=== PATIENT | female | born 1960 | race Caucasian/White ===

== ENCOUNTER 2020-09-23 10:01 | Outpatient (CLI) | payer BC | END 2020-09-23 10:02 | disposition home or self-care (01) | LOC: CTENTCT 10:01 | PROVIDERS: ATTEND Otolaryngology Plastic Surgery within the Head & Neck | DX: J32.9 Chronic sinusitis, unspecified (principal) | CPT/HCPCS: 70486 ==

== ENCOUNTER 2020-10-15 14:06 | Outpatient (CLI) | payer BC ==
[2020-10-16 16:11] LABS: SARS-CoV-2 MS2 Positive; SARS-CoV-2 N Gene Negative; SARS-CoV-2 S Gene Negative; SARS-CoV-2 by NAA Not Detected (NotDetected); SARS-CoV-2 orf1ab Negative
== END 2020-10-15 14:07 | disposition home or self-care (01) ==
LOC: LABBT 14:06
PROVIDERS: ATTEND Otolaryngology Plastic Surgery within the Head & Neck
DX: Z01.812 Encounter for preprocedural laboratory examination (principal); Z20.828 Contact with and (suspected) exposure to other viral communicable diseases; J32.9 Chronic sinusitis, unspecified; J32.0 Chronic maxillary sinusitis; J32.2 Chronic ethmoidal sinusitis; J34.2 Deviated nasal septum; J34.3 Hypertrophy of nasal turbinates; J35.01 Chronic tonsillitis; J35.1 Hypertrophy of tonsils; J35.2 Hypertrophy of adenoids; J35.8 Other chronic diseases of tonsils and adenoids
CPT/HCPCS: 85014; 87635; U0003

== ENCOUNTER 2020-10-20 05:55 | Day surgery (SDC) | payer BC ==
[2020-10-19 08:54] VITALS: BMI 20.1
[2020-10-20] MEDS ORDERED: AFRIN NASAL MIST 15 ML BOT ONE (06:11)
[2020-10-20] MEDS ORDERED: Midazolam HCl 2 mg/2 ml Vial ONE (07:29)
[2020-10-20] MEDS ORDERED: Ferric Subsulfate (ASTRINGYN) 8 GM VIAL ONE (08:00)
[2020-10-20] MEDS ORDERED: Fentanyl 100 MCG/2 ML VIAL ONE ×2 (08:04→09:13)
[2020-10-20] MEDS ORDERED: methylPREDNISolone Acetate 40 mg/ml Vial ONE (08:23)
[2020-10-20] MEDS ORDERED: PROPOFOL 200 MG/20 ML VIAL ONE (09:38)
[2020-10-20] MEDS ORDERED: Lidocaine 1% PF 5 ML VIAL ONE (09:38)
[2020-10-20] MEDS ORDERED: PHENYLEPHRINE-NS 100 MCG/ML 10 ML SYRINGE ONE (09:38)
[2020-10-20] MEDS ORDERED: Dexamethasone 20 MG/5 ML VIAL ONE (09:38)
[2020-10-20] MEDS ORDERED: Ondansetron PF 4 MG/2 ML Vial ONE ×2 (09:38→12:34)
--- NOTE | 2020-10-20 15:32 | OP ---
DATE OF PROCEDURE: 10/20/2020 PREOPERATIVE DIAGNOSES: 1. Chronic rhinosinusitis. 2. Nasal septal deviation. 3. Bilateral inferior turbinate hypertrophy. 4. Nasal obstruction. 5. Chronic adenotonsillitis. 6. Adenotonsillar hypertrophy. POSTOPERATIVE DIAGNOSES: 1. Chronic rhinosinusitis. 2. Nasal septal deviation. 3. Bilateral inferior turbinate hypertrophy. 4. Nasal obstruction. 5. Chronic adenotonsillitis. 6. Adenotonsillar hypertrophy. PROCEDURES PERFORMED: 1. Bilateral endoscopic sinus surgery, total ethmoidectomies. 2. Bilateral endoscopic sinus surgery, maxillary antrostomies. 3. Bilateral endoscopic sinus surgery, frontal sinusotomies. 4. Nasal septoplasty. 5. Bilateral inferior turbinate submucosal resection. 6. Tonsillectomy and adenoidectomy. ESTIMATED BLOOD LOSS: 50 mL. COMPLICATIONS: None. ANESTHESIA: GETA. PROCEDURE IN DETAIL: After consent was obtained, the patient was identified, brought to the operating room, and placed on the operating table in the supine position. General endotracheal anesthesia and intravenous access were obtained and we proceeded with positioning the patient for oropharyngeal surgery. Oropharyngeal exposure was obtained with a Vy-Dante mouth gag after a head drape was placed and secured with a towel clip. The Vy-Dante mouth gag was then suspended from the [place] tray and palatal elevation was achieved with a red rubber catheter. The right tonsil was addressed first. We used a curved Allis to grasp the tonsil and retract it medially as an anterior pillar incision was made. The retrotonsillar fascial plane was then established and blunt dissection was performed with the suction cautery. Blood vessels were anticipated, identified, and cauterized as they were encountered. Ultimately, dissection was carried to the posterior tonsillar pillar mucosa which was incised hemostatically, as well as the base of tongue connection. The tonsil was then passed off as a specimen and bleeding points within the tonsillar bed were cauterized under direct visualization. We subsequently turned our attention to the contralateral side, where using a similar technique, a near identical procedure was performed. Again, the tonsil was grasped and retracted medially with a curved Allis. The retrotonsillar fascial plane was established and while the anterior pillar was retracted medially. The hemostatic blunt dissection of the tonsil with a suction cautery was performed with blood vessels anticipated, identified, and cauterized as they were encountered. Again, dissection continued to the base of tongue and posterior tonsillar pillar mucosa which was incised in a hemostatic fashion. The tonsillar beds were then carefully inspected and bleeding points were identified and cauterized with a suction cautery. After this portion of the procedure, hemostasis was completely obtained. Under direct mirror visualization, we visualized the adenoid pad. Under direct mirror visualization, we removed the bulk of the adenoid tissue with the adenoid curette. We then packed the nasopharynx for an appropriate period of time with [id number] tonsillar sponges. After a period of observation, we removed the pack. Under indirect mirror visualization, we obtained hemostasis and vaporization of residual adenoid tissue with electrocautery. The patient's oral cavity was copiously irrigated with iced saline and subsequently suctioned. After completion of the procedure, the nasal cavity and oropharynx were irrigated and suctioned as were the gastric contents. The patient was then awakened and transferred to the recovery room where the patient remained in stable condition prior to discharge to Day Stay. Patient was taken to the operating room and placed supine on the table. General endotracheal anesthesia was obtained by the anesthesia staff. Then 1% lidocaine with 1:100,000 epinephrine was injected into the nasal septum as well as the inferior turbinates. The patient was prepped and draped in standard surgical fashion. The Afrin pledgets were then removed. A [place] incision was made on the left nasal septum. Submucoperichondrial dissection was performed bilaterally of the deviated portions of the septum, which included the maxillary crest and the crest deviation, as well as the mid portion of the septum. Cartilage and bony deviation was removed, leaving a generous caudal and dorsal strut. Any straight pieces of cartilage were then placed within the cartilage press, pressed, straightened, and then placed between the mucoperichondrial flaps, which were then closed using a 4-0 gut stitch. The inferior turbinates were then punctured with the submucosal Coblation machine, and 3 separate coblations were delivered to the anterior inferior portion of the inferior turbinates. Following this, the nasal cavity was irrigated. All debris was removed. An orogastric tube was placed. Gastric contents and Tavarez splints were then placed in the nasal cavity and sutured with a 3-0 silk stitch. Following this, a 0-degree endoscope was advanced into the middle meatus and the middle turbinates were gently medialized with a [place] elevator. The uncinate process was then visualized bilaterally and was anteriorly fractured using a ball-ended probe bilaterally. The uncinate was then removed using the 40-degree microdebrider blade and the up-biting Blakesley forceps bilaterally. Following this, the natural maxillary sinus ostia was visualized and was widened using the 40-degree microdebrider and the straight Blakesley forceps bilaterally. Following this, the ethmoidal bulla was identified bilaterally and was punctured on its medial and inferior aspect using the 0-degree microdebrider and the ethmoid bulla was opened bilaterally using the microdebrider and up-biting Blakesley forceps. Following this, the grand lamella was identified and was punctured into the posterior ethmoidal cells using the 0-degree microdebrider blade. Working from posterior to anterior, the ethmoidal cells were opened keeping the cribriform plate in view. Following this, a 40-degree microdebrider and the 45-degree endoscope was used to further visualize the anterior ethmoidal cells and removed the anterior ethmoidal cells exposing the frontal sinus ostia bilaterally. The frontal sinus ostia was then widened bilaterally using the 40-degree microdebrider blade. Following this, the nasal cavity was irrigated. NasoPore packing was placed within the middle meatus. Tavarez splints were placed and secured. The patient tolerated the procedure well. Job ID: [id number]
== END 2020-10-20 12:56 | disposition home or self-care (01) ==
LOC: SDC 05:55
PROVIDERS: ATTEND Otolaryngology Plastic Surgery within the Head & Neck
PROC: 09BM8ZZ Excision of Nasal Septum, Via Natural or Artificial Opening Endoscopic (ICD-10-PCS; principal; 2020-10-20)
PROC: 09BL8ZZ Excision of Nasal Turbinate, Via Natural or Artificial Opening Endoscopic (ICD-10-PCS; principal; 2020-10-20)
PROC: 0CTPXZZ Resection of Tonsils, External Approach (ICD-10-PCS; principal; 2020-10-20)
PROC: 099Q8ZZ Drainage of Right Maxillary Sinus, Via Natural or Artificial Opening Endoscopic (ICD-10-PCS; principal; 2020-10-20)
PROC: 09BT8ZZ Excision of Left Frontal Sinus, Via Natural or Artificial Opening Endoscopic (ICD-10-PCS; principal; 2020-10-20)
PROC: 0CTQXZZ Resection of Adenoids, External Approach (ICD-10-PCS; principal; 2020-10-20)
PROC: 099R8ZZ Drainage of Left Maxillary Sinus, Via Natural or Artificial Opening Endoscopic (ICD-10-PCS; principal; 2020-10-20)
PROC: 09BS8ZZ Excision of Right Frontal Sinus, Via Natural or Artificial Opening Endoscopic (ICD-10-PCS; principal; 2020-10-20)
PROC: 09BV8ZZ Excision of Left Ethmoid Sinus, Via Natural or Artificial Opening Endoscopic (ICD-10-PCS; principal; 2020-10-20)
PROC: 09BU8ZZ Excision of Right Ethmoid Sinus, Via Natural or Artificial Opening Endoscopic (ICD-10-PCS; principal; 2020-10-20)
DX: J35.03 Chronic tonsillitis and adenoiditis (principal); J32.8 Other chronic sinusitis; J34.2 Deviated nasal septum; J34.3 Hypertrophy of nasal turbinates; J34.89 Other specified disorders of nose and nasal sinuses; D64.9 Anemia, unspecified
CPT/HCPCS: 88304; J1100; J2250; J2405; J2704; J2920; J3010